=== PATIENT | male | born 1975 | race Caucasian/White ===

== ENCOUNTER 2022-05-22 12:18 | Outpatient (CLI) | payer OTHER | END 2022-05-22 12:19 | disposition home or self-care (01) | LOC: TBSIIMAG 12:18 | PROVIDERS: ATTEND Orthopaedic Surgery | DX: S83.92XA Sprain of unspecified site of left knee, initial encounter (principal); M23.8X2 Other internal derangements of left knee; R93.7 Abnormal findings on diagnostic imaging of other parts of musculoskeletal system ==

== ENCOUNTER 2025-08-22 23:02 | Emergency (ER) | payer BC ==
[2025-08-22 23:45] LABS: #Basophils Less than 0.03 10x3/uL (0.0-0.2); #Eosinophils 0.29 10x3/uL (0.0-0.7); #Monocytes 0.48 10x3/uL (0.11-0.59); #Neutrophils 2.81 10x3/uL (1.40-6.50); %Basophils 0.3 % (0.0-1.0); %Eosinophils 4.6 % (0.0-10.0); %Lymphocytes 42.6 % (21.0-51.0); %Monocytes 7.6 % (0.0-10.0); %Neutrophils 44.7 % (42.0-75.0); Hematocrit 41.6 % (42.0-52.0); Hemoglobin 13.6 g/dL (14.0-18.0); Mean Corpuscular Hemoglobin 28.6 pg (27.0-31.0); Mean Corpuscular Volume 87.4 fL (78.0-98.0); Platelet Count 233 10x3/uL (130-400); Red Blood Cell (RBC) Count 4.76 mill/uL (4.70-6.10); White Blood Cell (WBC) Count 6.29 10x3/uL (4.8-10.8)
[2025-08-23 00:02] LABS: ALT (SGPT) 52 U/L (Less than 45); AST (SGOT) 47 U/L (11-34); Albumin 4.2 g/dL (3.1-4.5); Alkaline Phosphatase 73 U/L (40-110); Anion Gap 12 mmol/L (10-20); BUN (Urea Nitrogen) 11 mg/dL (8.9-20.6); Bilirubin, Total 0.2 mg/dL (0.3-1.2); Calc. Creatinine Clearance 0 mL/min (70-130); Calcium 9.4 mg/dL (7.8-10.44); Carbon Dioxide 26 mmol/L (22-29); Chloride 107 mmol/L (98-107); Globulin 2.7 g/dL (2.4-3.5); Glucose 116 mg/dL (70-105); Potassium 3.8 mmol/L (3.5-5.1); Sodium 141 mmol/L (136-145)
== END 2025-08-23 02:33 | disposition home or self-care (01) ==
LOC: ERS 23:02
DX: I10 Essential (primary) hypertension (principal); I48.91 Unspecified atrial fibrillation; E78.00 Pure hypercholesterolemia, unspecified; Z79.899 Other long term (current) drug therapy
CPT/HCPCS: 71045; 80053; 84484; 85025; 93005; 94760